=== PATIENT | male | born 1970 | race Caucasian/White ===

== ENCOUNTER 2020-07-18 16:05 | Emergency (ER) | payer OTHER ==
[~2020-07-18] VITALS: Ht 182.9 cm; Wt 99.5 kg
[2020-07-18 16:06] VITALS: BP 128/71
[2020-07-18] MEDS ORDERED: ACET-907 PO (16:14)
--- OUTSIDE RECORDS SUMMARY | 2020-07-18 16:55 | CCD ---
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 Role Phone Sofia Moody Unavailable PROBLEMS No Information ALLERGIES No Known Allergies ENCOUNTERS from 1970 to 2020-04-30 Encounter Location Date Provider Diagnosis [facility] [address] [place] [address] Apr, Sofia Carlosdavid Acne vulgaris L70.0 and Rash and nonspecific skin eruption R21 IMMUNIZATIONS No Information SOCIAL HISTORY Tobacco Use: Social History Observation Description Date Details (start date - stop date) Never Smoker Sex Assigned At : Social History Observation Description Sex Assigned At Unknown Tobacco Use: Question Answer Notes Are you a: never smoker REASON FOR REFERRAL No Information VITAL SIGNS Weight 223 lbs Apr, Height 6'0 in Apr, BMI 30.24 kg/m2 Apr, Blood pressure systolic 126 mm Hg Apr, Blood pressure diastolic 74 mm Hg Apr, MEDICATIONS Medication SIG (Take, Route, Frequency, Duration) Start Date En d Date Status Doxycycline Monohydrate 100 MG 1 capsule Orally Twice a day as needed for acne cyst flare ups for 30 day(s) Apr, Active PROCEDURES No Information RESULTS No Results REASON FOR VISIT RASH /ACNE MEDICAL (GENERAL) HISTORY Type Description Date Surgical History No Surgical history information Goals Section No Information Health Concerns No Information MEDICAL EQUIPMENT No Information MENTAL STATUS No Information FUNCTIONAL STATUS No Information ASSESSMENTS Encounter Date Diagnosis Notes Apr, Acne vulgaris (ICD-10 - L70.0) Apr, Rash and nonspecific skin eruption (ICD- 10 - R21) PLAN OF TREATMENT Medication Medication Name Sig Start Date Stop Date Doxycycline Monohydrate 100 MG 1 capsule Orally Twice a day as needed for acne cyst flare ups for 30 day(s) Apr, Treatment Notes Assessment Notes Clinical Notes Acne vulgaris BPO over the counter for face wash Rash and nonspecific skin eruption Pt to call for RUBEN appt when rash recurs Next Appt Details prn Reason: Insurance Providers Payer Name Payer Address Payer Phone Insured Name Patient Relati onship to Insured Coverage Start Date Coverage End Date [employer] [address] [facility] [phone] PHONG TERRAZAS self
--- OUTSIDE RECORDS SUMMARY | 2020-07-18 16:55 | CCD ---
Author Author [facility] Address Unknown Phone Unavailable Support Name Relationship Address Phone SELF Next Of Kin Unknown Unavailable Re-disclosure Warning The records that you are about to access may contain information from federally-assisted alcohol or drug abuse programs. If such information is present, then the following federally mandated warning applies: This information has been disclosed to you from records protected by federal confidentiality rules (42 CFR part 2). The federal rules prohibit you from making any further disclosure of this information unless further disclosure is expressly permitted by the written consent of the person to whom it pertains or as otherwise permitted by 42 CFR part 2. A general authorization for the release of medical or other information is NOT sufficient for this purpose. The Federal rules restrict any use of the information to criminally investigate or prosecute any alcohol or drug abuse patient.The records that you are about to access may contain highly sensitive health information, the redisclosure of which is protected by Article 27-F of the [facility] Public Health law. If you continue you may have access to information: Regarding HIV / AIDS; Provided by facilities licensed or operated by the [facility] Office of Mental Health; or Provided by the [facility] Office for People With Developmental Disabilities. If such information is present, then the following [facility] mandated warning applies: This information has been disclosed to you from confidential records which are protected by state law. State law prohibits you from making any further disclosure of this information without the specific written consent of the person to whom it pertains, or as otherwise permitted by law. Any unauthorized further disclosure in violation of state law may result in a fine or custodial sentence or both. A general authorization for the release of medical or other information is NOT sufficient authorization for further disc losure. Encounters Encounter Providers Location Date Indications Data Source(s ) Outpatient [address] [place] [address], [place] [id number] 04/23/2020 12:00:00 AM EST eCW1 ([facility]) Medications Medication Brand Name Start Date Product Form Dose Route Admi nistrative Instructions Pharmacy Instructions Status Indications Reaction Description Data Source(s) Doxycycline Monohydrate 100 MG Oral Capsule Doxycycline [place] hydrate 100 MG 04/23/2020 12:00:00 AM EST 1.0 {capsule} active Doxycycline Monohydrate 100 MG eCW1 ([facility]) Insurance Providers Payer name Policy type / Coverage type Policy ID Covered constitution party ID Covered constitution party's relationship to gallegos Policy [place] Plan Information 'S ADMINISTRATION [id number] [facility] [id number] SP [id number] SELF PAY ONLY [id number] Results ID Date Data Source [id number] 06/07/2020 12:00:00 AM EST [facility] Name Value Range Interpretation Code Description Data Eduarda rce(s) Supporting Document(s) SARS coronavirus 2 RNA [Presence] in Res piratory specimen by STEPHY with probe detection [facility] This lab was ordered by Joshua Jain and reported by [facility]. Procedure Social History Code Duration Value Status Description Data Source(s ) Smoking 04/23/2020 12:00:00 AM EST Never Smoker completed Never S moker eC1 ([facility]) Vital Signs ID Date Data Source UNK Name Value Range Interpretation Code Description Data Source(s) Diastolic blood pressure 74 mm[Hg] 74 mm[Hg] eCW1 ([facility]) Systolic blood pressure 126 mm[Hg] 126 mm[Hg] e CW1 ([facility]) Body mass index (BMI) [Ratio] 30.24 kg/m2 30.24 kg/m2 eCW1 ([facility]) Body height [in_i] eCW1 ([facility]) Body weight 223 [lb_av] 223 [lb_av] eCW1 ([facility]) Patient Treatment Plan of Care Planned Activity Planned Date Details Description Data Source (s) Doxycycline Monohydrate 100 MG Oral Capsule 04/23/2020 12:00:00 AM EST eCW1 ([facility])
== END 2020-07-18 17:46 | disposition left against medical advice (07) ==
LOC: M ED 16:05
DX: R50.9 Fever, unspecified (principal); R06.00 Dyspnea, unspecified